=== PATIENT | female | born 1980 | race Caucasian/White ===

== ENCOUNTER 2020-10-09 15:03 | Outpatient (CLI) | payer OTHER, SELFPAY ==
--- NOTE | ~2020-10-09 | MM_ITS ---
EXAMINATION: MM screening [facility] BI w marquise HISTORY: Screening mammogram TECHNIQUE: Craniocaudal and mediolateral oblique 3-D tomosynthesis images were obtained and synthetic 2-D images were generated. CAD analysis was submitted and interpreted. COMPARISON: 09/29/2019, 09/12/2019 BREAST PARENCHYMAL COMPOSITION: The breasts are heterogeneously dense, which may obscure small masses . FINDINGS: There is no evidence of suspicious mass, calcification, or architectural distortion to sugg est malignancy in either breast. There has been no suspicious interval change. IMPRESSION: 1. No mammographic evidence of malignancy. 2. Recommend routine screening mammography in one year. BI-RADS Category 1: Negative Reviewed, dictated and finalized at location A. VALUE ASSOCIATE
== END 2020-10-09 15:04 | disposition home or self-care (01) ==
LOC: ANHIMG 15:05
PROVIDERS: PCP Family Medicine; Visit Provider Nurse Practitioner
DX: Z12.31 Encounter for screening mammogram for malignant neoplasm of breast (principal)
CPT/HCPCS: 77063; 77067

== ENCOUNTER → 2020-10-29 09:48 | Outpatient (CLI) | payer OTHER, SELFPAY ==
--- NOTE | ~2020-10-29 | US_ITS ---
EXAMINATION: US pelvic complete w TV DATE: 10/29/2020 10:27 INDICATION: Right ovarian cyst. TECHNIQUE: Multiple transabdominal and transvaginal sonographic images of the pelvis were obtained. COMPARISON: Ultrasound 08/22/2018 FINDINGS: TRANSABDOMINAL ULTRASOUND: The uterus is septate. The uterus measures 7.2 x 3.9 x 6.7 cm. There is no free fluid in the pelvis. TRANSVAGINAL ULTRASOUND: The endometrial complex measures 5 mm in thickness. The right ovary measures 3.0 x 1.9 x 1.4 centers. The left ovary measures 4.1 x 3.5 x 4.2 cm. There is a 3.9 cm cyst in left ovary. IMPRESSION: 1. 3.9 cm left ovarian cyst, likely a follicular cyst. 2. Septate uterus. Reviewed, dictated and finalized at location A. ING SPECIALIST
== END ==
PROVIDERS: PCP Family Medicine; Visit Provider Obstetrics & Gynecology Gynecology
DX: N83.201 Unspecified ovarian cyst, right side (principal); Q51.28 Other and unspecified doubling of uterus
CPT/HCPCS: 76830; 76856

== ENCOUNTER 2021-05-19 00:59 | Day surgery (SDC) | payer OTHER, SELFPAY ==
[2021-05-13 14:25] VITALS: BMI 27.9
--- NOTE | 2021-05-19 07:27 | WPDHPUPDATE1 ---
History and Physical Update Update Date/Time: 05/19/21 07:27 History and Physical has been reviewed, including an updated exam of the patient. There are NO changes in the patient's condition. Risks, benefits, and alternatives have been discussed and questions answered. Patient agrees to proceed with procedure.
--- NOTE | 2021-05-19 07:28 | PM.HPGS ---
History of Present Illness History of Present Illness Consent: Risks, benefits, and alternatives have been discussed and questions answered. Patient agrees to proceed with procedure. Chief complaint: abn uterine bleeding Narrative: Sydnee Gibson is a 40 year old female with frequent menses every 20 days. Patient uses a tampon approximately 6 times per day. Ultrasound does reveal a septate uterus otherwise appears grossly normal. It was recommended to proceed with D&C hysteroscopy to evaluate. Risks of infection, bleeding, and perforation were reviewed. Possible pathology was discussed. Patient voiced understanding and agrees to proceed. Review of Systems Review of Systems: All systems reviewed & are unremarkable except as noted in HPI and below (History of present illness) PMFSH Past Medical History Medical History (Updated 05/19/21 @ 07:45 by Stacy Nguyen MD) Depression Developmental dysplasia of hip Hypothyroidism Labral tear of left hip joint (normal spontaneous vaginal delivery) X4 Surgical History Surgical History (Updated 05/19/21 @ 07:44 by Stacy Nguyen MD) History of hysteroscopy (~2006) W/Vaginal Septum Removal Status post left hip replacement February of 2021 Family History Family History Grandparent Depression Family history of glaucoma Cerebrovascular accident Malignant neoplasm of prostate Father Family history of malignant neoplasm Mother Family history of malignant melanoma Pulmonary embolism Social History Social History Smoking status: Never smoker Second hand tobacco smoke exposure: No Alcohol intake: current Alcohol use details: rare Substance use: never Substance use type: does not use Living arrangements: with family Gender identity (if verbalized by the patient): Female Spiritual care concerns: No Meds Home Medications and Allergies Home Medications Medication Instructions Recorded Confirmed Type bupropion HCl 150 mg PO DAILY 05/13/21 05/13/21 History calcium carbonate [Calcium 500] 500 mg PO DAILY 05/13/21 05/13/21 History levothyroxine 75 mcg PO DAILY 05/13/21 05/13/21 History us-ex-ahan-FA-herbal cmplx#190 1 tablet PO DAILY 05/13/21 05/13/21 History [Vitamin D3 Complete] sertraline 150 mg PO DAILY 05/13/21 05/13/21 History Allergies Allergy/AdvReac Type Severity Reaction Status Date / Time amoxicillin Allergy Unknown hives Verified 05/08/21 09:42 Exam Const: General: healthy appearing and alert Orientation/consciousness: patient oriented x3 Resp: Effort & Inspection: normal respiratory effort Auscultation: clear to auscultation bilaterally Cardio: Rate: regular rate Rhythm: regular rhythm GI: GI Palp: Yes Soft to palpation, No Tenderness to palpation present (GI) and No Palpable mass present : External Female Exam: normal external appearance Speculum Exam - Vagina: normal appearance of the vagina and normal vaginal discharge Speculum Exam - Cervix: normal appearance of the cervix Bimanual exam- vagina & uterus: uterine size normal and consistency normal Bimanual Exam- Adnexa, other: normal adnexae and No adnexal tenderness Neuro: General: patient oriented x3 Assessment and Plan Assessment and plan (1) Irregular menses: Code(s): N92.6 - Irregular menstruation, unspecified Status: Acute Assessment and Plan: Plan to proceed with D&C hysteroscopy
--- NOTE | 2021-05-19 08:01 | WPDANESEPPF ---
Anes - Initial Pre Proc Eval Procedure: Operation Date: 05/19/21 10:15 Proposed Procedures p Hysteroscopy, Dilation and Curettage - Stacy Nguyen MD Date/Time: 05/19/21 08:01 Surgeon: Stacy Nguyen MD Pre Op Diagnosis: abn uterine bleeding Patient Data Age: 40 Gender: F Height: 1.78 m Weight: 88.45 kg Allergies Allergy/AdvReac Type Severity Reaction Status Date / Time amoxicillin Allergy Unknown hives Verified 05/19/21 08:15 Home Medications Medication Instructions Recorded Confirmed Type bupropion HCl 150 mg PO DAILY 05/13/21 05/19/21 History calcium carbonate [Calcium 500] 500 mg PO DAILY 05/13/21 05/19/21 History levothyroxine 75 mcg PO DAILY 05/13/21 05/19/21 History xv-pm-agpn-FA-herbal cmplx#190 1 tablet PO DAILY 05/13/21 05/19/21 History [Vitamin D3 Complete] sertraline 150 mg PO DAILY 05/13/21 05/19/21 History Patient hx anesthesia problems: none Family hx anesthesia problems: none PMFSH Past Medical History Medical History (Updated 05/19/21 @ 07:45 by Stacy Nguyen MD) Depression Developmental dysplasia of hip Hypothyroidism Labral tear of left hip joint (normal spontaneous vaginal delivery) X4 Surgical History Surgical History (Updated 05/19/21 @ 07:44 by Stacy Nguyen MD) History of hysteroscopy (~2006) W/Vaginal Septum Removal Status post left hip replacement February of 2021 Family History Family History Grandparent Depression Family history of glaucoma Cerebrovascular accident Malignant neoplasm of prostate Father Family history of malignant neoplasm Mother Family history of malignant melanoma Pulmonary embolism Social History Social History Smoking status: Never smoker Second hand tobacco smoke exposure: No Alcohol intake: current Alcohol use details: rare Substance use: never Substance use type: does not use Living arrangements: with family Gender identity (if verbalized by the patient): Female Spiritual care concerns: No Anes - Eval Final PreProcedure Day of Procedure 09/13/21 08:01 Patient weight: overweight Heart: regular rate and rhythm Lungs: clear to auscultation and normal air movement Airway: Mallampati scale class II Neurological: alert and oriented Last oral intake: >/= 8 hours ASA classification: II Emergent: no Anesthetic plan: proceed Anesthesia type and monitoring: general GIVS and standard monitoring Informed Consent: The patient's anesthetic plan and its attendant risks and benefits were discussed with the patient/family/POA. Questions were solicited and answers provided to the satisfaction of the patient/family/POA.
[2021-05-19] MEDS: LACTATED RINGERS 1,000 ML 30 ML IV CONT (08:37)
[2021-05-19] MEDS: ACETAMINOPHEN 500 MG TABLET 1000 MG PO (08:44)
[2021-05-19 08:48] VITALS: BP 103/64; PULSE 57; RESP 14; TEMP 36.5; O2SAT 100
[2021-05-19 10:25] VITALS: BP 121/74; PULSE 56; RESP 14; O2SAT 97
--- NOTE | 2021-05-19 10:25 | W.PM.PROC2 ---
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 She was prepped and draped in the usual sterile fashion. [place] speculum was placed in the vagina and the cervix grasped on the anterior lip with a tenaculum. The uterus is sounded to 8cm. The cervix is serially injected in each quadrant with 1% lidocaine and dilated with Hegar. The diagnostic hysteroscope was placed with the stated findings. The MyoSure device is opened and placed in the polyps in each side of the cavity are removed under direct visualization. Medium sharp curette is then used to sharply curette the endometrium until a good uterine cry was noted in all areas. All instruments were then removed and the patient is awakened from anesthesia and taken to recovery in stable condition. Sponge, needle, and instrument counts are correct per the OR staff. Estimated Blood Loss 5 Drains No Packing No Pathology yes ( Endometrial shavings and curettings) Complications No immediate complications Condition stable Disposition PACU
[2021-05-19] MEDS: KETOROLAC 15 MG/ML VIAL (*BKC) IV PUSH (10:45)
[2021-05-19 10:55] VITALS: BP 117/76; PULSE 52; RESP 14; O2SAT 99
[2021-05-19 11:20] VITALS: BP 130/71; PULSE 60; RESP 14; O2SAT 100
== END 2021-05-19 11:30 | disposition home or self-care (01) ==
PROVIDERS: PCP Family Medicine; Visit Provider Obstetrics & Gynecology Gynecology
PROC: 0U5B8ZZ Destruction of Endometrium, Via Natural or Artificial Opening Endoscopic (ICD-10-PCS; CPT 58563; principal; 2021-05-19 10:15)
DX: N92.6 Irregular menstruation, unspecified (principal); N84.0 Polyp of corpus uteri; E03.9 Hypothyroidism, unspecified; F32.9 Major depressive disorder, single episode, unspecified
CPT/HCPCS: 58558; 88305; A9270; J1885; J2250; J2704; J3010; J7030; J7120

== ENCOUNTER 2021-12-10 09:48 | Outpatient (CLI) | payer OTHER, SELFPAY ==
--- NOTE | ~2021-12-10 | MM_ITS ---
EXAMINATION: MM screening [facility] BI w marquise HISTORY: Screening TECHNIQUE: Craniocaudal and mediolateral oblique 3-D tomosynthesis images were obtained and synthetic 2-D images were generated. CAD analysis was submitted and interpreted. COMPARISON: Comparison to multiple prior studies sequentially, with oldest reviewed study dated 09/12. BREAST PARENCHYMAL COMPOSITION: The breasts are heterogeneously dense, which may obscure small masses . FINDINGS: There are subtle asymmetries in the subareolar location of the right breast. The left breas t is stable without evidence for malignancy. IMPRESSION: 1. Right breast asymmetries in the subareolar location. 2. Additional mammographic views and possible breast ultrasound are recommended. BI-RADS Category 0: Incomplete: Needs additional imaging evaluation. Reviewed, dictated and finalized at location A. IMPRESSION: 1. Right breast asymmetries in the subareolar location. 2. Additional mammographic views and possible breast ultrasound are recommended . BI-RADS Category 0: Incomplete: Needs additional imaging evaluation.
== END 2021-12-10 09:49 | disposition home or self-care (01) ==
LOC: ANHIMG 09:50
PROVIDERS: PCP Family Medicine; Visit Provider Nurse Practitioner
DX: Z12.31 Encounter for screening mammogram for malignant neoplasm of breast (principal); R92.8 Other abnormal and inconclusive findings on diagnostic imaging of breast
CPT/HCPCS: 77063; 77067

== ENCOUNTER 2021-12-26 12:55 | Outpatient (CLI) | payer OTHER, SELFPAY ==
--- NOTE | ~2021-12-26 | MMUS_ITS ---
EXAMINATION: MM diagnostic [facility] RT w marquise, US breast RT complete HISTORY: Right mammographic asymmetry, subareolar area, reported on December 10, 2021 bilateral screening mammogram TECHNIQUE: Additional 3-D tomosynthesis images of the right breast were performed and synthetic 2-D i mages were generated. CAD analysis was submitted and interpreted. High resolution complete right jeanette st ultrasound including all 4 quadrants and subareolar area was performed. COMPARISON: December 10, 2021 bilateral screening mammogram 10/09/2020, 09/12/2019 bilateral screening mammogram examinations FINDINGS: MAMMOGRAPHIC FINDINGS: No suspicious mass, architectural distortion, malignant calcification, skin thickening or retraction is noted. ULTRASOUND: 2:00 near nipple: Parallel circumscribed oval 5.5 x 9.6 x 8.9 mm sonolucency without internal vascula rity or posterior shadowing, compatible with simple cyst. No suspicious mass or shadowing of the right breast is detected. IMPRESSION: 1. Benign findings; no evidence of malignancy 2. Routine mammographic screening is recommended BI-RADS Category 2: Benign finding(s). Reviewed, dictated and finalized at location A. IMPRESSION: 1. Benign findings; no evidence of malignancy 2. Routine mammographic screening is recommended BI-RADS Category 2: Benign finding(s).
== END 2021-12-26 12:56 | disposition home or self-care (01) ==
PROVIDERS: PCP Family Medicine; Visit Provider Obstetrics & Gynecology Gynecology
DX: R92.8 Other abnormal and inconclusive findings on diagnostic imaging of breast (principal)
CPT/HCPCS: 76641; 77061; 77065; G0279

== ENCOUNTER → 2022-08-04 10:42 | Outpatient (CLI) | payer OTHER, SELFPAY ==
--- NOTE | ~2022-08-04 | US_ITS ---
EXAMINATION: US transvaginal DATE: 08/04/2022 11:13 INDICATION: Menorrhagia. History of septate uterus. Comparison:Ultrasound dated 10/29/2020 TECHNIQUE: Multiple endovaginal sonographic images of the pelvis performed. FINDINGS: The uterus measures 8.3 x 4.3 x 6.9 cm. There is a septate uterus.. The endometrial complex measures on the right measures 9 mm and on the left measures 12 mm. The right ovary measures 2.3 x 1.8 x 2.6 cm and the left ovary measures 2 x 1.2 x 2.4 cm there is a m inimally complicated cyst of the right ovary measuring 1.9 cm.. There are small follicles in each ov toby. Normal doppler signal in both ovaries. There is no free fluid in the pelvis. There are no abnormal masses seen on either side. IMPRESSION: 1. Septate uterus with mild endometrial thickening on the left. 2: Minimally complicated right ovarian cyst measuring 1.9 cm. Reviewed, dictated and finalized at location A. NG FOLDER
== END ==
PROVIDERS: PCP Family Medicine; Visit Provider Obstetrics & Gynecology Gynecology
DX: N92.1 Excessive and frequent menstruation with irregular cycle (principal); Q51.28 Other and unspecified doubling of uterus
CPT/HCPCS: 76830

== ENCOUNTER 2022-11-30 09:19 | Emergency (ER) | payer OTHER, SELFPAY ==
[2022-11-30 09:38] VITALS: BP 117/89; PULSE 84; RESP 16; TEMP 36.5; O2SAT 100
[2022-11-30 09:40] VITALS: BP 117/89; PULSE 84; RESP 16; TEMP 36.5; O2SAT 100
--- NOTE | 2022-11-30 10:23 | ED.SKABFB ---
HPI - Skin/Abscess/Foreign Bdy General Chief complaint: Skin/Abscess/Foreign Body Stated complaint: rash on back Time Seen by Provider: 11/30/22 10:23 Source: patient, RN notes reviewed and old records reviewed Mode of arrival: ambulatory Limitations: no limitations History of Present Illness HPI narrative: 42 year old female who presents to [facility] with complaints of developing red raised rash from her mid spine radiating to right side in linear fashion since Wednesday evening mid back region with mild discomfort but itching. Patient reports that she had some general back pain last week, denies any fevers or any other symptoms.Patient reports that she has been taking some Ibuprofen for her symptoms. 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 MD complaint: other (shingles) Onset (ago): day(s) (3 days) Severity scale (1-10): 2 Quality: aching Treatments prior to arrival: other (Ibuprofen) Related Data Home Medications Medication Instructions Recorded Confirmed calcium carbonate 500 mg calcium 500 mg PO DAILY 05/13/21 11/30/22 (1,250 mg) tablet (Calcium 500) multivit with 1 tablet PO DAILY 05/13/21 11/30/22 [id number] 18 mg iron-800 mcg-150 mg tablet (Vitamin D3 Complete) cetirizine 10 mg tablet (Zyrtec) 10 mg PO DAILY PRN Allergic 11/14/21 11/30/22 Symptoms cholecalciferol (vitamin D3) 100 50,000 unit PO WEEKLY 11/30/22 11/30/22 mcg (4,000 unit) capsule Allergies Allergy/AdvReac Type Severity Reaction Status Date / Time amoxicillin Allergy Unknown hives Verified 11/19/22 09:35 Review of Systems Review of Systems: CONSTITUTIONAL: Denies fever, chills, or sweats. CARDIOVASCULAR: Denies chest pain, palpitations, or edema. RESPIRATORY: Denies cough or dyspnea. SKIN: Reports itchy rash to her back from spine to right side with mild pain no drainage. MUSCULOSKELETAL: Denies joint pain or myalgia. NEUROLOGIC: Denies headache, numbness, or weakness. All systems reviewed & are unremarkable except as noted in HPI and below PMFSH Past Medical History Medical History Depression Developmental dysplasia of hip Hypothyroidism Labral tear of left hip joint (normal spontaneous vaginal delivery) X4 Surgical History Surgical History History of hysteroscopy (~2006) W/Vaginal Septum Removal Status post left hip replacement February of 2021 Family History Family History Grandparent Depression Family history of glaucoma Cerebrovascular accident Malignant neoplasm of prostate Father Family history of malignant neoplasm Mother Family history of malignant melanoma Pulmonary embolism Social History Social History Smoking status: Never smoker Second hand tobacco smoke exposure: No Alcohol intake: current Alcohol use details: rare Substance use: never Substance use type: does not use Lack of Transportation: No Lack of Food: Never True Current Housing: I Have Housing Concerned About Future Housing: No Difficulty Paying Gas/Electric Bills: No Difficulty Paying for Meds: No Currently Unemployed: No Education: Master's Degree or Higher Difficulty w/ Childcare or Family Care: No Living arrangements: with family Occupation/Education: occupation Gender identity (if verbalized by the patient): Female Spiritual care concerns: No Comments At time of signature, agree with nursing past medical, surgical, social and family history. There is no relevant family history pertinent to the presenting complaint Exam Narrative: GENERAL: Well-appearing, well-nourished, and in no acute distress. HEAD: Normocephalic, atraumatic. EYES: PERRLA, conjunctivae clear, and EOMI. ENT: [facility]
== END 2022-11-30 10:41 | disposition home or self-care (01) ==
PROVIDERS: Emergency Provider Registered Nurse; PCP Family Medicine
DX: B02.9 Zoster without complications (principal); E03.9 Hypothyroidism, unspecified
CPT/HCPCS: 99213; G0463

== ENCOUNTER 2023-01-26 08:54 | Outpatient (CLI) | payer OTHER, SELFPAY ==
--- NOTE | ~2023-01-26 | MM_ITS ---
EXAMINATION: MM screening [facility] BI w marquise HISTORY: Screening mammogram TECHNIQUE: Craniocaudal and mediolateral oblique 3-D tomosynthesis images were obtained and synthetic 2-D images were generated. CAD analysis was submitted and interpreted. COMPARISON: 12/26/2021, 12/10/2021, 10/09/2020, 09/29/2019, 09/12/2019 BREAST PARENCHYMAL COMPOSITION: The breasts are heterogeneously dense, which may obscure small masses . FINDINGS: No suspicious mass, calcification, or architectural distortion are identified in either alan ast to suggest malignancy. There has been no suspicious interval change. IMPRESSION: 1. No mammographic evidence of malignancy. 2. Recommend routine screening mammography in one year. BI-RADS Category 1: Negative Reviewed, dictated and finalized at location A.
== END 2023-01-26 08:55 | disposition home or self-care (01) ==
LOC: ANHIMG 08:55
PROVIDERS: PCP Family Medicine; Visit Provider Nurse Practitioner
DX: Z12.31 Encounter for screening mammogram for malignant neoplasm of breast (principal)
CPT/HCPCS: 77063; 77067

== ENCOUNTER → 2023-07-08 12:39 | Outpatient (CLI) | payer OTHER, SELFPAY ==
--- NOTE | ~2023-07-08 | US_ITS ---
EXAMINATION: US pelvic complete w TV DATE: 07/08/2023 13:14 INDICATION: Right ovarian cyst TECHNIQUE: Multiple transabdominal and endovaginal sonographic images of the pelvis were obtained. COMPARISON: 08/04/2022 FINDINGS: The uterus measures 8.3 x 5.0 x 5.2 cm. Septate uterus is noted. The endometrial complex me asures 7 mm in the right horn and 5 mm in the left horn. The right ovary measures 2.7 x 2.5 x 2.1 cm and contains a 1.5 cm cyst. The left ovary measures 2.9 x 1.7 x 1.9 cm. There is normal vascular flow in the ovaries. There is no free fluid in the pelvis. IMPRESSION: 1. 1.5 cm cyst of the right ovary, considered normal in a reproductive age female. 2. Septate uterus. Reviewed, dictated and finalized at location A. IMPRESSION: 1. 1.5 cm cyst of the right ovary, considered normal in a reproductive age fema le. 2. Septate uterus.
== END ==
PROVIDERS: PCP Family Medicine; Visit Provider Nurse Practitioner
DX: N83.201 Unspecified ovarian cyst, right side (principal)
CPT/HCPCS: 76830; 76856

== ENCOUNTER 2023-12-13 09:28 | Outpatient (CLI) | payer OTHER, SELFPAY ==
[2023-12-13 10:18] LABS: Hematocrit 40.8 % (37.0-47.0)
== END 2023-12-13 09:29 | disposition home or self-care (01) ==
LOC: ANHSURGERY 09:32
PROVIDERS: PCP Family Medicine; Visit Provider Obstetrics & Gynecology Gynecology
DX: N92.0 Excessive and frequent menstruation with regular cycle (principal); Z01.818 Encounter for other preprocedural examination
CPT/HCPCS: 36415; 85014; 85018; 86850; 86900; 86901

== ENCOUNTER 2023-12-20 03:09 | Day surgery (SDC) | payer OTHER, SELFPAY ==
[2023-12-10 12:25] VITALS: BMI 26.5
--- NOTE | 2023-12-10 12:31 | PC.NURSE ---
Report to the Outpatient Waiting Room, entrance under the green pavilion located off [facility], at time 6:00 on date 12/20/23. Planned Procedure Time: 7:30. Time changes happen often and if your time is changed the preop area will call you the afternoon before. - You and your visitor will be asked to self-screen and do not enter if you have any COVID symptoms. - A mask is optional within the hospital at this time. Patients may have clear liquids (water, carbonated beverages, clear teas, apple juice) until 3 hours prior to surgery (4:30) with a maximum of 20 ounces. - No food from midnight until time of surgery Take the following medications with a SIP of water the morning of surgery: BUPROPION, LEVOTHYROXINE, SERTRALINE DO NOT STOP ANY OF YOUR OTHER PRESCRIPTION MEDICATIONS PRIOR TO SURGERY ?EXCEPT THE FOLLOWING Medications to discontinue per physician: VITAMINS/SUPPLEMENTS Date to take last dose: 12/16/23 Please no make-up, nail pashto, hairspray, perfume, deodorant, or body powder the day of surgery. No jewelry (including any body piercings) or valuables the day of surgery, leave them at home. Please take a shower or bath the night before, or the morning of, surgery with an antibacterial soap. Wear comfortable, loose fitting clothing. - Jewelry must be removed prior to entering the operating room. Rings and piercings that are not removed may be cut off. - The hospital will not accept responsibility for valuables. - Please leave all valuables, including medications, at home the day of surgery. If you are going home after surgery, a licensed bottom hoop driver must drive you home. - NO public transportation without another adult if you receive anesthesia. - We recommend that an adult stay with you for 24 hours following discharge. - We also recommend that you do not drive, make important decision, drink alcoholic beverages, or take any drugs that were not prescribed by your health care provider for at least 24 hours after your discharge time. Follow any additional instructions given to you from your surgeon. If you or anyone in your household have experienced Covid symptoms in the past week, please notify your surgeon or the nurse liaison at the phone number below for possible testing. Telephone instructions given to PT Sharri JUAREZ and asked if any additional questions and then verbalized understanding. Patient advised to call surgeon office or pre surgery nurse liaison [phone] if any additional questions.
[2023-12-20] VITALS (11 sets, daily range): BP systolic 104–110; BP diastolic 62–73; PULSE 59–85; RESP 12–16; TEMP 36.2–36.7; O2SAT 95–100
--- NOTE | 2023-12-20 06:50 | WPDHPUPDATE1 ---
History and Physical Update Update Date/Time: 12/20/23 06:50 History and Physical has been reviewed, including an updated exam of the patient. There are NO changes in the patient's condition. Risks, benefits, and alternatives have been discussed and questions answered. Patient agrees to proceed with procedure.
--- NOTE | 2023-12-20 06:50 | PM.IMHP ---
H&P: HPI History of Present Illness Date/Time: 12/20/23 06:50 Chief Complaint: Menorrhagia Narrative: 43-year-old status post endometrial ablation in August of 2022 who has had continued prolonged cycles. Patient has tried oral contraceptives with no success. Patient has elected to proceed with hysterectomy. Plan is to proceed with total vaginal hysterectomy possible bilateral salpingectomy. Risks of infection, bleeding injury to internal organs ( ovaries, bowel, bladder, ureters), deep vein thrombosis, general anesthesia, and possible open procedure are reviewed. Patient voices understanding and agrees to proceed. Review of Systems Review of Systems: not repeated day of surgery; patient states no changes in status PMFSH Past Medical History Medical History (Updated 12/20/23 @ 06:55 by Stacy Nguyen MD) Depression Developmental dysplasia of hip Hypothyroidism Labral tear of left hip joint (normal spontaneous vaginal delivery) X4 Surgical History Surgical History (Updated 12/20/23 @ 06:54 by Stacy Nguyen MD) History of hysteroscopy (~2006) W/Vaginal Septum Removal Second hysteroscopy 2020 benign polyp Status post hysteroscopic ablation of endometrium Status post left hip replacement February of 2021 Family History Family History Grandparent Depression Family history of glaucoma Cerebrovascular accident Malignant neoplasm of prostate Father Family history of malignant neoplasm Mother Family history of malignant melanoma Pulmonary embolism Social History Social History Smoking status: Never smoker Second hand tobacco smoke exposure: No Alcohol intake: never Alcohol use details: rare Substance use: never Substance use type: does not use Lack of Transportation: No Lack of Food: Never True Current Housing: I Have Housing Concerned About Future Housing: No Difficulty Paying Gas/Electric Bills: No Difficulty Paying for Meds: No Currently Unemployed: No Education: Master's Degree or Higher Difficulty w/ Childcare or Family Care: No Living arrangements: with family Occupation/Education: occupation Gender identity (if verbalized by the patient): Female Spiritual care concerns: No Meds Home Medications and Allergies Home Medications Medication Instructions Recorded Confirmed Type calcium carbonate (Calcium 500) 500 mg PO DAILY 05/13/21 12/20/23 History cetirizine 10 mg tablet (Zyrtec) 10 mg PO DAILY PRN Allergic 11/14/21 12/20/23 History Symptoms cholecalciferol (vitamin D3) 100 50,000 unit PO WEEKLY 11/30/22 12/20/23 History mcg (4,000 unit) capsule levothyroxine 75 mcg tablet 75 mcg PO DAILY #90 tabs 05/19/23 12/20/23 Rx sertraline 100 mg tablet 200 mg PO DAILY #180 tabs 05/19/23 12/20/23 Rx bupropion HCl 300 mg 24 hr tablet, 300 mg PO QAM #90 tabs 08/19/23 12/20/23 Rx extended release zolpidem 10 mg tablet 10 mg PO .at night #30 tabs 10/11/23 12/20/23 Rx Allergies Allergy/AdvReac Type Severity Reaction Status Date / Time amoxicillin Allergy Unknown hives Verified 12/20/23 06:29 Exam Const: General: healthy appearing and alert Orientation/consciousness: patient oriented x3 Resp: Effort & Inspection: normal respiratory effort : External Female Exam: normal external appearance Speculum Exam - Vagina: normal appearance of the vagina and normal vaginal discharge Speculum Exam - Cervix: normal appearance of the cervix Bimanual exam- vagina & uterus: uterine size normal and consistency normal Bimanual Exam- Adnexa, other: normal adnexae and No adnexal tenderness Neuro: General: patient oriented x3 Assessment and Plan Assessment and plan (1) Menorrhagia: Code(s): N92.0 - Excessive and frequent menstruation with regular cycle Status: Acute Assessment and Plan: pl
[2023-12-20] MEDS: LACTATED RINGERS 1,000 ML 30 ML IV CONT ×2 (06:51→08:50)
[2023-12-20] MEDS: KETOROLAC 15 MG/ML VIAL (*BKC) IV PUSH (06:52)
[2023-12-20] MEDS: ACETAMINOPHEN 500 MG TABLET 1000 MG PO (06:52)
--- NOTE | 2023-12-20 06:57 | WPDANESEPPF ---
Anes - Initial Pre Proc Eval Procedure: Operation Date: 12/20/23 07:30 Proposed Procedures p Total Vaginal Hysterectomy with Bilateral Salpingectomy - Stacy Nguyen MD Date/Time: 12/20/23 06:57 Surgeon: Stacy Nguyen MD Pre Op Diagnosis: menorrhagia Patient Data Age: 43 Gender: F Height: 1.78 m Weight: 85.4 kg Allergies Allergy/AdvReac Type Severity Reaction Status Date / Time amoxicillin Allergy Unknown hives Verified 12/20/23 06:29 Home Medications Medication Instructions Recorded Confirmed Type calcium carbonate (Calcium 500) 500 mg PO DAILY 05/13/21 12/20/23 History cetirizine 10 mg tablet (Zyrtec) 10 mg PO DAILY PRN Allergic 11/14/21 12/20/23 History Symptoms cholecalciferol (vitamin D3) 100 50,000 unit PO WEEKLY 11/30/22 12/20/23 History mcg (4,000 unit) capsule levothyroxine 75 mcg tablet 75 mcg PO DAILY #90 tabs 05/19/23 12/20/23 Rx sertraline 100 mg tablet 200 mg PO DAILY #180 tabs 05/19/23 12/20/23 Rx bupropion HCl 300 mg 24 hr tablet, 300 mg PO QAM #90 tabs 08/19/23 12/20/23 Rx extended release zolpidem 10 mg tablet 10 mg PO .at night #30 tabs 10/11/23 12/20/23 Rx Patient hx anesthesia problems: none Family hx anesthesia problems: none Results Review: All pre-operative results and documents have been reviewed as part of the pre-operative evaluation. [facility] Past Medical History Medical History Depression Developmental dysplasia of hip Hypothyroidism Labral tear of left hip joint (normal spontaneous vaginal delivery) X4 Surgical History Surgical History History of hysteroscopy (~2006) W/Vaginal Septum Removal Second hysteroscopy 2020 benign polyp Status post hysteroscopic ablation of endometrium Status post left hip replacement February of 2021 Family History Family History Grandparent Depression Family history of glaucoma Cerebrovascular accident Malignant neoplasm of prostate Father Family history of malignant neoplasm Mother Family history of malignant melanoma Pulmonary embolism Social History Social History Smoking status: Never smoker Second hand tobacco smoke exposure: No Alcohol intake: never Alcohol use details: rare Substance use: never Substance use type: does not use Lack of Transportation: No Lack of Food: Never True Current Housing: I Have Housing Concerned About Future Housing: No Difficulty Paying Gas/Electric Bills: No Difficulty Paying for Meds: No Currently Unemployed: No Education: Master's Degree or Higher Difficulty w/ Childcare or Family Care: No Living arrangements: with family Occupation/Education: occupation Gender identity (if verbalized by the patient): Female Spiritual care concerns: No Anes - Eval Final PreProcedure Day of Procedure 12/20/23 06:57 Patient weight: normal Heart: regular rate and rhythm Lungs: clear to auscultation Airway: Mallampati scale class 1 and class II Neurological: alert and oriented Last oral intake: >/= 8 hours ASA classification: II Emergent: no Anesthetic plan: proceed Anesthesia type and monitoring: general and standard monitoring Other findings: Hypothyroidism, clinically euthryoid. Results Review: All pre-operative results and documents have been reviewed as part of the pre-operative evaluation. Informed Consent: The patient's anesthetic plan and its attendant risks and benefits were discussed with the patient/family/POA. Questions were solicited and answers provided to the satisfaction of the patient/family/POA.
[2023-12-20] MEDS: ceFAZolin 2 GM/D5W 50 ML 2 GM/50 ML BAG IVPB (07:28)
[2023-12-20] MEDS: LIDO 1%/EPINEPHRINE 1:100,000 20 ML VIAL 6 ML INFILTRATE (08:41)
--- NOTE | 2023-12-20 08:55 | W.PM.PROC2 ---
Procedure Note - Detailed Date of Procedure 12/20/23 Pre-op Diagnosis menorrhagia Post-op Diagnosis Same Procedure Performed Total vaginal hysterectomy and right salpingectomy Surgeon Stacy Nguyen MD Anesthesia General Findings normal appearing ovaries, right tube, and uterus Description of Procedure The patient is taken to the operating room and placed under anesthesia in the dorsal lithotomy position. She was prepped and draped in the usual sterile fashion. A long weighted speculum was placed posteriorly and a Rayshawn retractor placed anteriorly. The vaginal mucosa was injected in a circumferential manner around the cervix. A 10 blade scalpel was used to incise the vaginal mucosa in a circumferential manner. The anterior vaginal mucosa was dissected off using sharp blunt dissection until the peritoneum was entered. The Rayshawn retractor was then replaced. The posterior vaginal mucosa was dissected off using sharp and blunt dissection until the peritoneum was entered. The long curved weighted speculum was placed. The uterosacral and cardinal ligaments are serially clamped, transected, and suture ligated with 0 Vicryl. These were tagged for future use. The uterine vessels are clamped, transected, and suture ligated with 0 Vicryl. The fundus is delivered through the cul-de-sac using piercing towel clamps. The utero-ovarian ligaments are clamped, transected, and suture ligated with 0 Vicryl. The right tube was grasped with a Latasha, crossclamped, excised, and suture ligated with 0 Vicryl. The left tube fimbriated end is not visible. It is therefore left in place. The peritoneum was grasped anteriorly and posteriorly with a Peon. The 0 Ethibond suture was used to pursestring the peritoneum closed incorporating the previously tagged cardinal and uterosacral ligaments. All pedicles are hemostatic. The suture was tied down. The vaginal cuff was closed using a 0 Vicryl in a running locked fashion. Vaginal packing coated with Premarin cream is placed. Sponge, needle, and instrument counts are correct per the OR staff. The patient was awakened from anesthesia and taken to recovery in stable condition. Patient was given Ancef prior to incision. Estimated Blood Loss 25 Drains Yes ( De La Rosa catheter) Packing Yes ( vaginal) Pathology Yes ( uterus and right tube) Complications No immediate complications Condition Stable Disposition PACU
[2023-12-20] MEDS: fentaNYL CITRATE INJ (*CRX) 100 MCG/2 ML VIAL 25 MCG IV PUSH ×8 (08:57→09:47)
--- NOTE | 2023-12-20 10:53 | ADMGEN ---
[id number]-This patient, Sydnee Gibson, was admitted to OB 2nd Floor Room 289-00. Patient/family oriented to hospital policies and general routines including ID bracelet, bed and alarms, visiting hours, pain management, procedures, bathroom and other care routines, personal items, smoking policy, room service/diet, and visiting hours. Information on how to activate the Rapid Response Team has been discussed. Patient/Family are encouraged to report perceived risks to care and to ask questions if they do not understand what they are told or what they should do.
[2023-12-20] MEDS: KETOROLAC 30 MG/ML VIAL (*BKC) IV PUSH (11:15)
[2023-12-20] MEDS: DEXTROSE 5%/LACTATED RINGERS 1,000 ML 125 ML IV CONT (11:15)
[2023-12-20] MEDS: SIMETHICONE 80 MG TAB.CHEW PO ×2 (11:20→17:22)
[2023-12-20] MEDS: HYDROcodone/acetaminophen (*CRX) 10-325 MG TABLET 1 TAB PO ×2 (12:12→19:20)
[2023-12-20] MEDS: HYDROcodone/acetaminophen (*CRX) 5-325 MG TABLET 1 TAB PO ×2 (15:20)
[2023-12-20] MEDS: IBUPROFEN 600 MG TABLET PO ×2 (17:21→22:10)
[2023-12-20] MEDS: ZOLPIDEM TARTRATE (*CRX) 5 MG TABLET 10 MG PO (22:10)
[2023-12-21 04:00] VITALS: BP 100/61; PULSE 65; RESP 16; TEMP 36.9; O2SAT 97
[2023-12-21] MEDS: HYDROcodone/acetaminophen (*CRX) 10-325 MG TABLET 1 TAB PO ×2 (04:00→08:58)
[2023-12-21 04:52] LABS: Basophils Percent Auto 0.5 % (0.2-1.2); Eosinophils Percent Auto 0.5 % (0-4.4); Hematocrit 35.4 % (37.0-47.0); Hemoglobin 11.2 g/dL (12.0-15.0); Immature Granulocyte Absolute 0.02 K/mm3 (0.00-0.031); Immature Granulocyte Percent A 0.3 % (0-0.5); Lymphocytes Absolute Auto 2.54 K/mm3 (0.9-3.2); Lymphocytes Percent Auto 33.6 % (18.3-44.2); Mean Corpuscular HGB Conc 31.6 g/dl (32-36); Mean Corpuscular Hemoglobin 26.9 pg (26-34); Mean Corpuscular Volume 84.9 fl (80-100); Mean Platelet Volume 9.5 fl (7.4-10.4); Monocytes Absolute Auto 0.8 K/mm3 (0.1-0.6); Neutrophils Absolute Auto 4.2 K/mm3 (1.3-6.7); Neutrophils Percent Auto 55.1 % (45.5-73.1); Platelet Count Result 185 k/mm3 (150-375); Red Blood Count 4.17 M/mm3 (4.2-5.4); Red Cell Distribution Width 13.3 % (11.5-14.5); White Blood Count 7.6 K/mm3 (4.5-10.0)
[2023-12-21] MEDS: LEVOTHYROXINE SODIUM 75 MCG TABLET PO (06:51)
[2023-12-21] MEDS: IBUPROFEN 600 MG TABLET PO (06:54)
[2023-12-21 07:30] VITALS: BP 105/66; PULSE 73; RESP 16; TEMP 36.3; O2SAT 98
--- NOTE | 2023-12-21 07:54 | PM.GYNPNOP ---
[employer]OR[employer] - A/P Postoperative Procedures: Procedures Operation Date: 12/20/23 07:30 Actual Procedure Side Surgeon p Total Vaginal Hysterectomy with Bilateral Salpingectomy Bilateral Stacy Nguyen MD Postoperative day: 1 Postoperative status: doing well Postoperative plan: routine post-op care and discharge Time Spent With Patient Time: Total time spent is greater than 50% in coordination of care (as documented) at patient's floor/unit and/or counseling patient: Time with patient: less than 15 minutes [employer]OR[employer]- PN:Subj Post-Op Subjective Date/time seen: 12/21/23 07:54 Subjective: patient reports feeling better (once packing removed last night pain minimal), patient has no complaints and patient is tolerating oral intake Exam Narrative: abdomen soft, nt [employer]OR[employer] - PN: Obj Data Vital Signs Vital Signs: Vital Signs - 24 hr 12/20/23 08:50 12/20/23 09:05 12/20/23 09:17 Temperature 97.3 F L Pulse Rate 60 59 L Respiratory Rate 13 12 Blood Pressure 104/65 104/68 Pulse Oximetry 100 100 Oxygen Delivery Simple Face Mask Simple Face Mask Room Air Oxygen Flow Rate 6 6 12/20/23 09:20 12/20/23 09:35 12/20/23 09:50 Temperature 97.1 F L Pulse Rate 62 60 61 Respiratory Rate 12 12 14 Blood Pressure 110/68 104/66 108/69 Pulse Oximetry 99 95 98 Oxygen Delivery Room Air Room Air Room Air Oxygen Flow Rate 12/20/23 10:00 12/20/23 11:00 12/20/23 13:35 Temperature 97.7 F 97.7 F Pulse Rate 63 63 63 Respiratory Rate 16 16 16 Blood Pressure 107/65 107/65 Pulse Oximetry 99 99 99 Oxygen Delivery Room Air Room Air Oxygen Flow Rate 12/20/23 15:20 12/20/23 15:20 12/20/23 19:30 Temperature 98.0 F 98.1 F Pulse Rate 85 85 72 Respiratory Rate 16 16 16 Blood Pressure 106/62 107/64 Pulse Oximetry 99 99 99 Oxygen Delivery Room Air Oxygen Flow Rate 12/20/23 19:30 12/21/23 04:00 12/21/23 04:00 Temperature 98.5 F Pulse Rate 72 65 65 Respiratory Rate 16 16 16 Blood Pressure 100/61 Pulse Oximetry 99 97 97 Oxygen Delivery Room Air Room Air Oxygen Flow Rate Intake/Output Intake/Output: Intake & Output 12/18/23 12/19/23 12/20/23 12/21/23 23:59 23:59 23:59 23:59 Intake Total 2337.4 Output Total 2045 350 Balance 292.4 -350 Meds/Results Medications: Active Medications Generic Name Dose Route Start Last Admin Trade Name Freq PRN Reason Stop Dose Admin Hydrocodone Bitart/Acetaminophen 1 tab 12/20/23 09:54 12/20/23 15:20 Hydrocodone/Acetaminophen (*Crx) 5-325 Mg Tablet PO 1 tab Q3H PRN Administration Pain Rated 5 or Less Hydrocodone Bitart/Acetaminophen 1 tab 12/20/23 09:54 12/21/23 04:00 Hydrocodone/Acetaminophen (*Crx) 10-325 Mg Tablet PO 1 tab Q3H PRN Administration Pain Rated 6 or Greater Bupropion HCl 300 mg 12/20/23 09:54 12/20/23 11:21 Bupropion Hcl Xl (24 Hr) 150 Mg Tabcr PO Not Given QAM [facility] Ergocalciferol 50,000 units 12/26/23 09:00 Ergocalciferol 50,000 Units Capsule PO Harmon@0900 [facility] Ibuprofen 600 mg 12/20/23 09:54 12/21/23 06:54 Ibuprofen 600 Mg Tablet PO 600 mg Q6H PRN Administration Cramping Ketorolac Tromethamine 30 mg 12/20/23 09:54 12/20/23 11:15 Ketorolac 30 Mg/Ml Vial (*Bkc) IV PUSH 12/25/23 09:53 30 mg Q6H PRN Administration Pain Rated 4-6 Levothyroxine Sodium 75 mcg 12/21/23 06:30 12/21/23 06:51 Levothyroxine Sodium 75 Mcg Tablet PO 75 mcg DAILY@0630 [facility] Administration Loratadine 10 mg 12/20/23 10:09 Loratadine 10 Mg Tablet PO DAILY PRN Allergic Symptoms Naloxone HCl 0.1 mg 12/20/23 09:54 Naloxone Hcl 0.4 Mg/Ml Vial IV PUSH Q2M PRN Respiratory rate less than 10 Ondansetron HCl 4 mg 12/20/23 09:54 Ondansetron Inj 4 Mg/2 Ml Vial IV PUSH Q6H PRN Nausea And Vomiting Sertraline HCl 200 mg 12/20/23 09:54 12/20/23 11:21 Sertraline Hcl 50 Mg Tablet PO Not Given DAILY GARRETT Simethicone 80 m
--- NOTE | 2023-12-21 07:55 | PM.DS ---
DS: Admitting Diagnosis Discharge Date 12/21/23 Admitting Diagnosis menorrhagia DS: Discharge Diagnosis Discharge Diagnosis (1) History of total vaginal hysterectomy (TVH): Code(s): Z90.710 - Acquired absence of both cervix and uterus Status: Acute DS: Summary Hospital Course Hospital Course: Tolerating diet, voiding, and ambulating. Pain under good control. Status at Discharge Functional status at discharge: independent ambulation Overall status at discharge: patient is progressing back to baseline Time Spent with Patient Time attestation: Total time spent providing and/or coordinating discharge services: Time spent: Less than 30 minutes DS: Data Data Completed and Pending Pending studies at discharge: Pending at discharge 12/20/23 08:39 Surgical [PTH] Routine Labs on day of discharge: Labs from last 24 hours 12/21/23 03:47 WBC 7.6 RBC 4.17 L Hgb 11.2 L Hct 35.4 L MCV 84.9 MCH 26.9 MCHC 31.6 L RDW 13.3 Plt Count 185 MPV 9.5 Immature Gran % (Auto) 0.3 Neut % (Auto) 55.1 Lymph % (Auto) 33.6 [place] % (Auto) 10.0 H Eos % (Auto) 0.5 Baso % (Auto) 0.5 Lymph # (Auto) 2.54 [place] # (Auto) 0.8 H Eos # (Auto) 0.0 Baso # (Auto) 0.0 Abs Immat Gran (auto) 0.02 Absolute Neuts (auto) 4.2 Absolute Nucleated RBC 0.000 Nucleated RBC % 0.0 Discharge Plan Discharge Patient Disposition: Home, Self-Care Stand Alone Forms: General Discharge Instructions Follow-up/Referrals: Stacy Nguyen MD [Physician] - Discharge Medications: New hydrocodone-acetaminophen 5-325 mg tablet 1 tablet PO Q4H PRN (Reason: pain) Qty: 15 0RF Continued cholecalciferol (vitamin D3) 100 mcg (4,000 unit) Capsule 50,000 unit PO WEEKLY Patient Comments: PT TAKES ON WEDNESDAY cetirizine [Zyrtec] 10 mg tablet 10 mg PO DAILY PRN (Reason: Allergic Symptoms) calcium carbonate [Calcium 500] 500 mg calcium (1,250 mg) Tablet 500 mg PO DAILY sertraline 100 mg tablet 200 mg PO DAILY Qty: 180 3RF levothyroxine 75 mcg tablet 75 mcg PO DAILY Qty: 90 3RF bupropion HCl 300 mg tablet extended release 24 hr 300 mg PO QAM Qty: 90 1RF zolpidem 10 mg tablet 10 mg PO .at night Qty: 30 2RF
[2023-12-21] MEDS: SIMETHICONE 80 MG TAB.CHEW PO (08:58)
[2023-12-21] MEDS: SERTRALINE HCL 50 MG TABLET 200 MG PO (08:59)
[2023-12-21] MEDS: buPROPion HCL XL (24 HR) 150 MG TABCR 300 MG PO (08:59)
== END 2023-12-21 09:20 | disposition home or self-care (01) ==
LOC: ANHSURGERY 07:47 → ANHOB2 10:01
PROVIDERS: PCP Family Medicine; Visit Provider Obstetrics & Gynecology Gynecology
PROC: (CPT 58260; principal; 2023-12-20 07:30)
DX: N92.0 Excessive and frequent menstruation with regular cycle (principal); N72 Inflammatory disease of cervix uteri; N80.03 Adenomyosis of the uterus; N87.9 Dysplasia of cervix uteri, unspecified; E03.9 Hypothyroidism, unspecified; F32.A Depression, unspecified
CPT/HCPCS: 58262; 36415; 85014; 85018; 85025; 86850; 86900; 86901; 88307; 99199; A9270; J0690; J1100; J1885; J2250; J2405; J2704; J3010; J7120; J7121

== ENCOUNTER 2024-04-04 12:42 | Outpatient (CLI) | payer OTHER, SELFPAY ==
--- NOTE | ~2024-04-04 | MM_ITS ---
EXAMINATION: MM screening jessica BI w marquise HISTORY: Screening TECHNIQUE: Craniocaudal and mediolateral oblique 3-D tomosynthesis images were obtained and synthetic 2-D images were generated. CAD analysis was submitted and interpreted. COMPARISON: Comparison to multiple prior studies sequentially, with oldest reviewed study dated 03/2020. BREAST PARENCHYMAL COMPOSITION: Not dense: There are scattered areas of fibroglandular density. FINDINGS: There is no evidence of suspicious mass, calcification, or architectural distortion to sugg est malignancy in either breast. There has been no suspicious interval change. IMPRESSION: 1. No mammographic evidence of malignancy. 2. Recommend routine screening mammography in one year. BI-RADS Category 1: Negative Reviewed, dictated and finalized at location B.
== END 2024-04-04 12:43 | disposition home or self-care (01) ==
PROVIDERS: PCP Family Medicine; Visit Provider Obstetrics & Gynecology Gynecology
DX: Z12.31 Encounter for screening mammogram for malignant neoplasm of breast (principal)
CPT/HCPCS: 77063; 77067

== ENCOUNTER 2024-08-28 10:01 | Outpatient (CLI) | payer OTHER, SELFPAY ==
--- NOTE | ~2024-08-28 | XR_ITS ---
XR chest 2V Ordering provider: Ita Wills PA-C History: 44 years Female with . COUGH SOB FOR 2 WEEKS . Comparison: None. FINDINGS: MEDIASTINUM: The cardiac silhouette is not enlarged. LUNGS: No infiltrates, effusions or pneumothorax. OTHER: No free air under the diaphragm. Degenerative spine. IMPRESSION: No acute cardiopulmonary pathology. Reviewed, dictated and finalized at location A. [employer]
== END 2024-08-28 10:02 | disposition home or self-care (01) ==
PROVIDERS: PCP Family Medicine; Visit Provider Student in an Organized Health Care Education/Training Program
DX: R05.9 Cough, unspecified (principal); R06.02 Shortness of breath; R09.89 Other specified symptoms and signs involving the circulatory and respiratory systems
CPT/HCPCS: 71046

== ENCOUNTER 2025-05-16 00:58 | Day surgery (SDC) | payer BC, SELFPAY ==
[2025-05-04 13:52] VITALS: BMI 23.1
[2025-05-16 09:18] VITALS: BP 101/70; PULSE 99; RESP 14; TEMP 36.2; O2SAT 100
[2025-05-16] MEDS: LACTATED RINGERS 1,000 ML 150 ML IV CONT (09:27)
--- NOTE | 2025-05-16 09:57 | P.PNAN_ITS ---
Anes - Initial Pre Proc Eval Procedure: Operation Date: 05/16/25 10:30 Proposed Procedures p Screening Colonoscopy - Jerry Oneal DO Date/Time: 05/16/25 09:57 Surgeon: Jerry Oneal DO Pre Op Diagnosis: Neoplasm screening Patient Data Age: 44 Gender: F Height: 1.78 m Weight: 72.3 kg Last Vital Signs Temp 36.2 C L 05/16/25 09:18 Pulse 99 05/16/25 09:18 Resp 14 05/16/25 09:18 BP 101/70 05/16/25 09:18 Pulse Ox 100 05/16/25 09:18 O2 Del Method Room Air 05/16/25 09:18 Allergies Allergy/AdvReac Type Severity Reaction Status Date / Time amoxicillin Allergy Unknown hives Verified 05/16/25 09:17 Home Medications ?Medication ?Instructions ?Recorded ?Confirmed ?Type calcium carbonate (Calcium 500) 500 mg PO DAILY 05/16/25 History cetirizine 10 mg tablet (Zyrtec) 10 mg PO DAILY PRN Al lergic 11/14/21 05/04/25 History Symptoms cholecalciferol (vitamin D3) 100 50,000 unit PO WEEKLY 11/30/22 05/16/25 History mcg (4,000 unit) capsule levothyroxine 75 mcg tablet 75 mcg PO DAILY #90 tabs 0 05/09/24 05/16/25 Rx bupropion HCl 300 mg 24 hr tablet, 300 mg PO QAM #90 t abs 08/08/24 05/16/25 Rx extended release zolpidem 10 mg tablet 10 mg PO .at night #30 tabs 11/06/24 05/16/25 Rx sertraline 100 mg tablet 200 mg (2 x 100 mg) PO DAILY #180 01/05/25 05/16/25 Rx tabs Patient hx anesthesia problems: none Family hx anesthesia problems: none Results Review: All pre-operative results and documents have been reviewed as part of the pre- operative evaluation. [facility] Past Medical History Medical History (Updated 05/15/25 @ 11:33 by Yfn Ham DO) Anxiety (normal spontaneous vaginal delivery) X4 Labral tear of left hip joint Developmental dysplasia of hip Depression Hypothyroidism Surgical History Surgical History Status post hysteroscopic ablation of endometrium Status post left hip replacement February of 2021 History of hysteroscopy (~2006) W/Vaginal Septum Removal Second hysteroscopy 2020 benign polyp Family History Family History Grandparent Depression Family history of glaucoma Cerebrovascular accident Malignant neoplasm of prostate Father Family history of malignant neoplasm Mother Family history of malignant melanoma Pulmonary embolism Social History Social History (Updated 04/03/25 @ 10:44 by Prudence Recinos MA) Smoking status: Never smoker Second hand tobacco smoke exposure: No Alcohol intake: current Alcohol use details: rarely Substance use: never Substance use type: does not use Do You Feel Safe in your Home?: No Lack of Transportation: No Lack of Food: Never True Current Housing: I Have Housing Concerned About Future Housing: No Difficulty Paying Gas/Electric Bills: No Difficulty Paying for Meds: No Currently Unemployed: No Education: Master's Degree or Higher Difficulty w/ Childcare or Family Care: No Living arrangements: with family Occupation/Education: occupation Gender identity (if verbalized by the patient): Female Spiritual care concerns: No Anes - Eval Final PreProcedure Day of Procedure 05/16/25 09:57 Patient weight: normal Heart: regular rate and rhythm Lungs: clear to auscultation and normal air movement Airway: Mallampati scale class II Neurological: alert and oriented Last oral intake: >/= 8 hours ASA classification: II Emergent: no Anesthetic plan: proceed Anesthesia type and monitoring: general GIVS and standard monitoring Results Review: All pre-operative results and documents have been reviewed as part of the pre- operative evaluation. Informed Consent: The patient's anesthetic plan and its attendant risks and benefits were discussed with the patient/family/POA. Questions were solicited and answers provided to the satisfaction of the patient/family/POA.
--- NOTE | 2025-05-16 10:46 | PM.IMHP ---
H&P: HPI History of Present Illness Date/Time: 05/16/25 10:46 Chief Complaint: screening for colorectal cancer Narrative: this is a 44-year-old woman who presents for colonoscopy. She has never had a colonoscopy before. She denies any hematochezia or melena. She denies family history colon cancer Review of Systems Review of Systems: All systems reviewed & are unremarkable except as noted in HPI and below Constitutional: Constitutional: Denies chills, Denies fever(s), Denies headache(s) and Denies weight loss Eyes: Eyes: Denies change in vision ENT: Denies dizziness, Denies headache(s), Denies neck mass and Denies throat swelling Cardiovascular: Cardiovascular: Denies chest pain, Denies lightheadedness and Denies dyspnea Respiratory: Respiratory: Denies cough, Denies dyspnea and Denies wheezing Gastrointestinal: Gastrointestinal: Denies abdominal pain, Denies change in bowel habits, Denies nausea and Denies vomiting Genitourinary: Genitourinary: Denies hematuria and Denies dysuria Musculoskeletal: Musculoskeletal: Reports as per HPI Integumentary/Breasts: Skin/Breast: Reports as per HPI Neurologic: Denies dizziness and Denies headache(s) Allergic/Immunologic: Allergic/Immunologic: Denies throat swelling and Denies wheezing [facility] Past Medical History Medical History (Updated 05/16/25 @ 10:47 by Jerry Oneal DO) Anxiety (normal spontaneous vaginal delivery) X4 Labral tear of left hip joint Developmental dysplasia of hip Depression Hypothyroidism Surgical History Surgical History Status post hysteroscopic ablation of endometrium Status post left hip replacement February of 2021 History of hysteroscopy (~2006) W/Vaginal Septum Removal Second hysteroscopy 2020 benign polyp Family History Family History Grandparent Depression Family history of glaucoma Cerebrovascular accident Malignant neoplasm of prostate Father Family history of malignant neoplasm Mother Family history of malignant melanoma Pulmonary embolism Social History Social History (Updated 04/03/25 @ 10:44 by Prudence Recinos MA) Smoking status: Never smoker Second hand tobacco smoke exposure: No Alcohol intake: current Alcohol use details: rarely Substance use: never Substance use type: does not use Do You Feel Safe in your Home?: No Lack of Transportation: No Lack of Food: Never True Current Housing: I Have Housing Concerned About Future Housing: No Difficulty Paying Gas/Electric Bills: No Difficulty Paying for Meds: No Currently Unemployed: No Education: Master's Degree or Higher Difficulty w/ Childcare or Family Care: No Living arrangements: with family Occupation/Education: occupation Gender identity (if verbalized by the patient): Female Spiritual care concerns: No Meds Home Medications and Allergies Home Medications ?Medication ?Instructions ?Recorded ?Confirmed ?Type calcium carbonate (Calcium 500) 500 mg PO DAILY 05/13/21 05/16/25 History cetirizine 10 mg tablet (Zyrtec) 10 mg PO DAILY PRN Allergic 11/14/21 05/04/25 History Symptoms cholecalciferol (vitamin D3) 100 50,000 unit PO WEEKLY 11/30/22 05/16/25 History mcg (4,000 unit) capsule levothyroxine 75 mcg tablet 75 mcg PO DAILY #90 tabs 05/09/24 05/16/25 Rx bupropion HCl 300 mg 24 hr tablet, 300 mg PO QAM #90 tabs 08/08/24 05/16/25 Rx extended release zolpidem 10 mg tablet 10 mg PO .at night #30 tabs 11/06/24 05/16/25 Rx sertraline 100 mg tablet 200 mg (2 x 100 mg) PO DAILY #180 01/05/25 05/16/25 Rx tabs Allergies Allergy/AdvReac Type Severity Reaction Status Date / Time amoxicillin Allergy Unknown hives Verified 05/16/25 09:17 Vital Signs Vital Signs - 24 hr 05/16/25 09:18 Temperature 97.1 F L Pulse Rate 99 Respiratory Rate 14 Blood Pressure 101/70 Pulse Oximetry 100 Oxygen Delivery Room Air Exam Const: General: no acute distress and alert Orientation/consciousness: patient oriented x3 HENMT: Head: normocephalic and atraumatic Ears: hearing grossly normal bilaterally Face/Nose/Sinus: Normal nares present Mouth: Yes Normal oral and palatal mucosa present Eyes: Periorbital: periorbital findings normal Sclera: sclerae normal EOM: EOMs intact bilaterally Neck: Neck: normal visual inspection, no lymphadenopathy and trachea midline Chest: Chest palpation & inspection: normal inspection of the chest Resp: Effort & Inspection: normal respiratory effort Auscultation: clear to auscultation bilaterally Cardio: Jugular venous distension: no JVD Rate: regular rate Rhythm: regular rhythm Heart sounds: S1 normal heart sound present and S2 normal heart sound present Peripheral pulses: Peripheral pulses 2+ throughout GI: Inspection: normal to inspection GI Palp: Yes Soft to palpation, No Tenderness to palpation present (GI), No Guarding due to palpation present (GI) and No Rebound tenderness present Percussion: Yes normal to percussion Auscultation: normal bowel sounds : General: Yes no CVA tenderness Back/Spine/Pelvis: Back: no CVA tenderness Neuro: General: patient oriented x3, no focal motor deficits and CN's II-XI intact bilaterally Cognition (Neuro): normal cognition Speech: normal speech Motor exam (neuro): 5/5 motor strength present throughout Extrem: General: capillary refill normal and no clubbing, cyanosis or edema Assessment and Plan Assessment and plan (1) Screening for colorectal cancer: Code(s): Z12.11 - Encounter for screening for malignant neoplasm of colon; Z12.12 - Encounter for screening for malignant neoplasm of rectum Status: Acute Assessment and Plan: I have recommended colonoscopy. I have discussed the procedure, risks, benefits, and alternatives. Questions were answered. Patient is agreeable to proceed.
[2025-05-16 11:17] VITALS: BP 115/63; PULSE 84; RESP 14; O2SAT 98
[2025-05-16 11:27] VITALS: BP 107/68; PULSE 72; RESP 20; O2SAT 98
[2025-05-16 11:37] VITALS: BP 109/66; PULSE 65; RESP 21; O2SAT 98
== END 2025-05-16 11:48 | disposition home or self-care (01) ==
PROVIDERS: PCP Family Medicine; Visit Provider Surgery
PROC: 0DJD8ZZ Inspection of Lower Intestinal Tract, Via Natural or Artificial Opening Endoscopic (ICD-10-PCS; CPT 45378; principal; 2025-05-16 10:30)
DX: Z12.11 Encounter for screening for malignant neoplasm of colon (principal); K57.30 Diverticulosis of large intestine without perforation or abscess without bleeding; E03.9 Hypothyroidism, unspecified; F41.9 Anxiety disorder, unspecified; F32.A Depression, unspecified; Q65.89 Other specified congenital deformities of hip; Z98.890 Other specified postprocedural states; Z98.891 History of uterine scar from previous surgery; Z80.42 Family history of malignant neoplasm of prostate; Z80.8 Family history of malignant neoplasm of other organs or systems
CPT/HCPCS: 45378; J2003; J2704; J7120

== ENCOUNTER 2025-06-14 14:31 | Outpatient (CLI) | payer BC, SELFPAY ==
--- NOTE | ~2025-06-14 | MM_ITS ---
EXAMINATION: MM screening jessica BI w marquise HISTORY: Screening TECHNIQUE: Craniocaudal and mediolateral oblique 3-D tomosynthesis images were obtained and synthetic 2-D images were generated. CAD analysis was submitted and interpreted. COMPARISON: Comparison to multiple prior studies sequentially, with oldest reviewed study dated 09/12/2019. BREAST PARENCHYMAL COMPOSITION: The breasts are heterogeneously dense, which may obscure small masses. FINDINGS: There is no evidence of suspicious mass, calcification, or architectural distortion to suggest malignancy in either breast. Scattered benign-appearing calcifications are present. IMPRESSION: 1. No mammographic evidence of malignancy. 2. Recommend routine screening mammography in one year. BI-RADS Category 2: Benign finding(s). Reviewed, dictated and finalized at location B.
== END 2025-06-14 14:32 | disposition home or self-care (01) ==
LOC: ANHFOHIMG 14:33
PROVIDERS: PCP Family Medicine; Visit Provider Nurse Practitioner
DX: Z12.31 Encounter for screening mammogram for malignant neoplasm of breast (principal)
CPT/HCPCS: 77063; 77067